=== PATIENT | female | born 1990 | race Caucasian/White ===

== ENCOUNTER 2020-09-07 05:52 | Day surgery (SDC) | payer OTHER ==
[2020-09-05 11:03] LABS: COVID AG,FIA SOURCE NASOPHARYNGEAL
[2020-09-05 11:03] LABS: BAND NEUTROPHILS % (MANUAL) 0 % (0-5)
[2020-09-05 11:16] LABS: HEMATOCRIT 39.4 % (36-46); HEMOGLOBIN 13.3 g/dL (12.0-16.0); MEAN CORPUSCULAR HEMOGLOBIN 29.2 pg (26.0-34.0); MEAN CORPUSCULAR HGB CONC 33.8 G/dL (31.0-37.0); MEAN CORPUSCULAR VOLUME 86 fL (80-100); PLATELET COUNT (AUTO) 274 K/uL (150-450); RED BLOOD CELL COUNT(AUTO) 4.56 MIL/uL (4.00-5.20); RED CELL DISTRIBUTION WIDTH 12.7 % (11.5-14.5)
[2020-09-05 11:23] LABS: ANION GAP 8 mmol/L (8-16); CARBON DIOXIDE 24 mmol/L (22-29); CHLORIDE 103 mmol/L (98-107); CREATININE 0.59 mg/dL (0.60-1.30); GLOMERULAR FILTR. RATE CALC > 60 mL/min (>60); GLUCOSE,RANDOM 86 mg/dL (70-110); POTASSIUM 3.5 mmol/L (3.5-5.1); SODIUM SERUM 135 mmol/L (136-145); UREA NITROGEN, BLOOD 9 mg/dL (7-18)
[2020-09-05 11:42] LABS: LYMPHOCYTES % (MANUAL) 23 % (22-44); MONOCYTES % (MANUAL) 10 % (2-9); SEGMENTED NEUTROPHILS % 67 % (40-70)
[2020-09-05 11:49] LABS: HCG,QUANTITATIVE 69255 mIU/mL (0-6)
[~2020-09-07] VITALS: Ht 157.5 cm; Wt 66.4 kg
[~2020-09-07 05:52] MED LIST: RINGERS SOLUTION,LACTATED 1,000 ML IV ONE
[2020-09-07] MEDS ORDERED: RINGERS SOLUTION,LACTATED 1,000 ML IV ONE (07:43)
[2020-09-07] MEDS ORDERED: HYDROmorphone 2 MG/ML VIAL IVP PRN (07:45)
[2020-09-07] MEDS ORDERED: FentaNYL CITRATE PF 100 MCG/2 ML VIAL IVP PRN (07:45)
[2020-09-07] MEDS ORDERED: MEPERIDINE-PF 25 MG/ML VIAL IVP PRN (07:45)
[2020-09-07] MEDS ORDERED: DEXTROSE 5% IV ONE (08:00)
[2020-09-07] MEDS ORDERED: DOXYCYCLINE HYCLATE 100 MG in DEXTROSE 5%-WATER 100 ML IV ONE (08:00)
[2020-09-07] MEDS ORDERED: WATER IV ONE (08:00)
[2020-09-07] MEDS ORDERED: DOXYCYCLINE HYCLATE IV ONE (08:00)
[2020-09-07] MEDS ORDERED: FentaNYL CITRATE PF 100 MCG/2 ML VIAL IVP ONE (12:00)
[2020-09-07] MEDS ORDERED: DEXAMETHASONE SOD PHOS 4 MG/ML VIAL IVP ONE (12:00)
[2020-09-07] MEDS ORDERED: MIDAZOLAM HCL 2 MG/2 ML VIAL IVP ONE (12:00)
[2020-09-07] MEDS ORDERED: KETOROLAC TROMETHAMINE 60 MG/2 ML VIAL IM ONE (12:00)
[2020-09-07] MEDS ORDERED: ONDANSETRON HCL 4 MG/2 ML VIAL IVP ONE (12:00)
[2020-09-07] MEDS ORDERED: PROPOFOL 1% 20 ML VIAL IVP ONE (12:00)
== END 2020-09-07 09:40 | disposition home or self-care (01) ==
LOC: SURGERY 05:52
PROVIDERS: ATTEND Obstetrics & Gynecology Obstetrics
DX: O02.1 Missed abortion (principal); Z88.1 Allergy status to other antibiotic agents; Z98.890 Other specified postprocedural states
CPT/HCPCS: 36415; 59820; 80048; 84702; 85007; 85027; 87426; 88305; C9803; J1100; J1885; J2250; J2405; J2704; J3010; J3490; J7060; J7120